=== PATIENT | female | born 1995 | race Caucasian/White ===

== ENCOUNTER 2017-09-29 01:02 | Inpatient (IN) | END 2017-10-02 16:17 | disposition home or self-care (01) | DRG 775 ==

== ENCOUNTER 2018-03-28 14:31 | Emergency (ER) | END 2018-03-28 17:40 | disposition home or self-care (01) ==

== ENCOUNTER 2018-04-17 16:22 | Day surgery (SDC) | END 2018-04-18 01:30 | disposition home or self-care (01) ==